=== PATIENT | female | born 1950 | race Caucasian/White ===

== ENCOUNTER 2018-07-12 10:34 | Emergency (ER) | payer OTHER ==
[~2018-07-12] VITALS: Ht 160 cm; Wt 56.0 kg
[2018-07-12] MEDS ORDERED: NORVASC10 M1 PO (10:42)
[2018-07-12] MEDS ORDERED: EFFEXOR XR75 MG PO (10:43)
[2018-07-12] MEDS ORDERED: CALCIUM500 M5 PO (10:43)
[2018-07-12] MEDS ORDERED: NAPROSYN500 MG PO (11:25)
[2018-07-12 11:39] VITALS: BP 158/91
== END 2018-07-12 11:45 | disposition home or self-care (01) | DRG 563 ==
LOC: ED 10:34
DX: S93.401A Sprain of unspecified ligament of right ankle, initial encounter (principal); I10 Essential (primary) hypertension; F41.9 Anxiety disorder, unspecified; W01.0XXA Fall on same level from slipping, tripping and stumbling without subsequent striking against object, initial encounter; Y92.009 Unspecified place in unspecified non-institutional (private) residence as the place of occurrence of the external cause